=== PATIENT | male | born 1995 | race Caucasian/White ===

== ENCOUNTER 2016-07-02 22:14 | Emergency (ER) | payer SELFPAY ==
[~2016-07-02] VITALS: Ht 185.4 cm; Wt 73.0 kg
[2016-07-02 22:33] VITALS: BP 140/80; PULSE 83; RESP 18; TEMP 98.7; O2SAT 98
[2016-07-02 23:05] VITALS: BP 140/80; PULSE 83; RESP 18; TEMP 98.7; O2SAT 98
[2016-07-02] MEDS ORDERED: IBUPROFEN 600 MG TAB PO ONE (23:15)
[2016-07-02] MEDS ORDERED: IBUP-232 PO (23:27)
--- NOTE | 2016-07-02 23:27 | PD ---
HPI Chief Complaint: Pain: Acute or Chronic Time Seen by Provider: 23:08 Travel History International Travel<30 days: No Contact w/Intl Traveler<30days: No Traveled to known affect area: No History of Present Illness HPI Patient is a 21-year-old male who is left-hand dominant, presents to emergency room with complaints of pains to his right wrist. Patient reports that he noticed pain to his right wrist 2 weeks ago, patient denies any injury or trauma to his wrist. Patient reports that he has increased pain with range of motion to his wrist. Patient denies any repetitive motions, adamantly denies any trauma or fall. PFSH Past Medical History Diminished Hearing: No Immunizations Current: Yes Tetanus Vaccination: Unknown Influenza Vaccination: No Social History Alcohol Use: No Tobacco Use: Yes Substance Use: No Allergies-Medications (Allergen,Severity, Reaction): Coded Allergies: No Known Allergies (Unverified , 07/02/16) Reported Meds & Prescriptions Reported Meds & Active Scripts Active Ibuprofen 600 Mg Tab 600 Mg PO Q6H PRN Review of Systems General / Constitutional: No: Fever Eyes: No: Visual changes HENT: No: Headaches Cardiovascular: No: Chest Pain or Discomfort Respiratory: No: Shortness of Breath Gastrointestinal: No: Abdominal Pain Genitourinary: No: Dysuria Musculoskeletal: Positive: Limited ROM (right wrist), Pain (right wrist) Skin: No Rash Neurologic: No: Weakness Psychiatric: No: Depression Endocrine: No: Polydipsia Hematologic/Lymphatic: No: Easy Bruising Physical Exam Narrative GENERAL: Well-nourished, well-developed patient. SKIN: Warm and dry. HEAD: Normocephalic. EYES: No scleral icterus. No injection or drainage. NECK: Supple, trachea midline. No JVD or lymphadenopathy. CARDIOVASCULAR: Regular rate and rhythm without murmurs, gallops, or rubs. RESPIRATORY: Breath sounds equal bilaterally. No accessory muscle use. GASTROINTESTINAL: Abdomen soft, non-tender, nondistended. MUSCULOSKELETAL: No cyanosis, or edema. Patient with pain with range of motion to right wrist, patient with no obvious bruising or swelling, pulses intact, neurovascularly intact. Patient with good range of motion to all fingers, no neurovascular compromise, Right upper extremity: Normal exam BACK: Nontender without obvious deformity. No CVA tenderness. Data Data Last Documented VS Vital Signs Date Time Temp Pulse Resp B/P Pulse Ox O2 Delivery O2 Flow Rate FiO2 07/02/16 23:09 83 18 07/02/16 23:05 98.7 140/80 98 Orders Ibuprofen (Motrin) (07/02/16 23:15) Wrist, Complete ([id number]) (07/02/16 ) Splint Or Brace Apply/Monitor (07/02/16 23:41) Cockup Hand Splint (07/02/16 ) MDM Medical Decision Making Medical Screen Exam Complete: Yes Emergency Medical Condition: Yes Interpretation(s) Vital Signs Date Time Temp Pulse Resp B/P Pulse Ox O2 Delivery O2 Flow Rate FiO2 07/02/16 23:09 83 18 07/02/16 23:05 98.7 83 18 140/80 98 07/02/16 22:33 98.7 83 18 140/80 98 Differential Diagnosis wrist sprain, carpel tunnel syndrome, distal forearm fracture Narrative Course Patient is a 21-year-old male who presents to emergency with complaints of pain to his right wrist for the past 2 weeks. Patient denies any trauma to his wrist , patient reports that he is left-hand dominant at baseline. Patient with no obvious injuries to his wrist, no obvious deformities or open fractures. Pulses intact, neurovascular intact. Plan to obtain x-rays of his wrist to look for any possible fractures. Reviewed x-ray results with patient. Patient understands need to follow-up with orthopedic surgery, will place patient in a wrist splint. Diagnosis Primary Impression: Sprain of wrist, left Qualified Code: S63.502A - Sprain of wrist, left, initial encounter Referrals: Damaso Burkett MD Patient Instructions: General Instructions Additional Instructions: Please bring your x-ray report to doctor's office or follow-up Please follow-up with orthopedic surgeon Please take Motrin or acetaminophen for pain Return to the emergency room as needed Med/Other Pt SpecificInfo: Prescription(s) given Scripts Ibuprofen 600 Mg [id number] Mg PO Q6H PRN (Pain/Inflammation) #40 TAB Ref 0 Prov:Devora Levin 07/02/16 Disposition: 01 DISCHARGE HOME Condition: Stable Devora Levin DO Jul 02, 2016 23:27
--- NOTE | 2016-07-02 23:51 | RADHPO ---
EXAM DATE/TIME: 07/02/2016 23:29 [facility] COMPARISON: No previous studies available for comparison. INDICATIONS : Right wrist pain for two weeks. MEDICAL HISTORY : None. SURGICAL HISTORY : None. ENCOUNTER: Initial ACUITY: 2 weeks PAIN SCORE: 7/10 LOCATION: Right upper extremity FINDINGS: Three view examination of the right wrist demonstrates no soft tissue swelling, dislocation, or fract ure. The carpal bones are in normal alignment. The joint spaces are maintained. Bony mineralizatio n is normal. CONCLUSION: Unremarkable examination of the right wrist. Brent Burris Jr., MD on July 02, 2016 at 23:50 Board Certified Radiologist. This report was verified electronically.
[2016-07-03 00:31] VITALS: BP 133/66; PULSE 56; RESP 18; O2SAT 98
[2016-07-03 00:40] VITALS: RESP 18
== END 2016-07-03 00:40 | disposition home or self-care (01) ==
LOC: PHED 22:14
DX: S63.502A Unspecified sprain of left wrist, initial encounter (principal); Z72.0 Tobacco use; X58.XXXA Exposure to other specified factors, initial encounter
CPT/HCPCS: 73110; 99283; L3908

== ENCOUNTER 2017-07-28 20:23 | Emergency (ER) | payer OTHER ==
[~2017-07-28 20:23] MED LIST: IBUP-232 PO
[2017-07-28 20:31] VITALS: BP 140/80; PULSE 78; RESP 20; TEMP 97.7; O2SAT 100
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
[2017-07-28 20:59] VITALS: BP 141/76; PULSE 76; RESP 15; O2SAT 99
== END 2017-07-28 21:56 | disposition home or self-care (01) ==
LOC: NEPB 20:23
DX: R09.89 Other specified symptoms and signs involving the circulatory and respiratory systems (principal); Z77.098 Contact with and (suspected) exposure to other hazardous, chiefly nonmedicinal, chemicals
CPT/HCPCS: 99281